=== PATIENT | male | born 1965 | race Native Hawaiian/Other Pacific Islander ===

== ENCOUNTER 2020-09-23 13:08 | Outpatient (CLI) | payer OTHER | END 2020-09-23 22:06 | disposition home or self-care (01) | LOC: INF 13:08 → EDBD 13:08 → INF 22:06 | PROVIDERS: ATTEND Internal Medicine | DX: Z23 Encounter for immunization (principal) | CPT/HCPCS: 96372 ==

== ENCOUNTER 2020-10-15 13:05 | Outpatient (CLI) | payer OTHER | END 2020-10-15 21:59 | disposition home or self-care (01) | LOC: INF 13:05 | PROVIDERS: ATTEND Internal Medicine | DX: Z23 Encounter for immunization (principal) | CPT/HCPCS: 96372 ==